=== PATIENT | female | born 1960 | race Caucasian/White ===

== ENCOUNTER 2017-04-20 12:57 | Outpatient (CLI) | payer OTHER | END 2017-04-20 20:30 | disposition home or self-care (01) | LOC: MRD 12:57 | PROVIDERS: ATTEND Internal Medicine Gastroenterology | DX: M25.552 Pain in left hip (principal) | CPT/HCPCS: 73502 ==

== ENCOUNTER 2017-05-17 09:23 | Outpatient (CLI) | payer OTHER ==
[2017-05-17 10:31] LABS: ANION GAP 12.5 (8-16); CARBON DIOXIDE 27.6 mmol/L (21-32); CHOL/HDL RATIO 2.7 (1-4.5); CREATININE 0.6 mg/dL (0.6-1.3); POTASSIUM 4.1 mmol/L (3.5-5.1); THYROID STIMULATING HORMONE 1.69 uIU/mL (0.34-3.74); TOTAL BILIRUBIN 0.4 mg/dL (0.0-1.0)
[2017-05-17 10:52] LABS: HEMATOCRIT 39.6 % (36-48); HEMOGLOBIN 13.3 g/dL (12.0-16.0); LYMPHOCYTES % (AUTO) 33.8 % (20.5-51.1); MEAN CORPUSCULAR HEMOGLOBIN 30 pg (27-31); MEAN CORPUSCULAR HGB CONC 34 g/dL (33-37); MEAN CORPUSCULAR VOLUME 89 fL (80-94); MONOCYTES % (AUTO) 6.9 % (1.7-9.3); NEUTROPHILS % (AUTO) 58.3 % (42.2-75.2); PLATELET COUNT (AUTO) 216 K/uL (140-450); RED BLOOD CELL COUNT(AUTO) 4.47 MIL/uL (4.20-5.40); RED CELL DISTRIBUTION WIDTH 13.1 % (11.6-13.7); WHITE BLOOD COUNT (AUTO) 4.6 K/uL (4.8-10.8)
[2017-05-17 10:53] LABS: BASOPHILS % (AUTO) 0.4 % (0.0-2.0); EOSINOPHILS % (AUTO) 0.6 % (0.0-4.0); LYMPHOCYTES # (AUTO) 1.5 K/uL (2.5-16.5); MONOCYTES # (AUTO) 0.3 K/uL (0.8-1.0); NEUTROPHILS # (AUTO) 2.7 K/uL (1.8-7.7)
[2017-05-18 08:36] LABS: ESTRADIOL SERUM <6.0 pg/mL (.); FOLLICLE STIMULATING HORMONE 75.3 mIU/mL (.); LUTEINIZING HORMONE 43.4 mIU/mL (.)
== END 2017-05-17 20:07 | disposition home or self-care (01) ==
LOC: MLB 09:23
PROVIDERS: ATTEND Family Medicine
DX: R06.02 Shortness of breath (principal); N95.0 Postmenopausal bleeding; M54.9 Dorsalgia, unspecified; M79.606 Pain in leg, unspecified
CPT/HCPCS: 36415; 71020; 80053; 82306; 82670; 83001; 83002; 84443; 85025

== ENCOUNTER 2017-10-18 12:26 | Outpatient (CLI) | payer OTHER | END 2017-10-18 20:45 | disposition home or self-care (01) | LOC: MUS 12:26 | PROVIDERS: ATTEND Family Medicine | DX: R22.31 Localized swelling, mass and lump, right upper limb (principal) | CPT/HCPCS: 76881 ==

== ENCOUNTER → 2017-11-19 | Outpatient (CLI) | payer OTHER | LOC: EEVIPCON 16:00 → MUS 16:00 | PROVIDERS: ATTEND Family Medicine | DX: R10.32 Left lower quadrant pain (principal) | CPT/HCPCS: 76536 ==

== ENCOUNTER 2017-11-30 13:46 | Outpatient (CLI) | payer OTHER | END 2017-11-30 18:09 | disposition home or self-care (01) | LOC: MRD 13:46 | PROVIDERS: ATTEND Family Medicine | DX: M54.5 Low back pain (principal); Z98.890 Other specified postprocedural states | CPT/HCPCS: 72110 ==

== ENCOUNTER 2018-02-12 12:35 | Outpatient (CLI) | payer OTHER | END 2018-02-12 20:43 | disposition home or self-care (01) | LOC: MRD 12:35 | PROVIDERS: ATTEND Family Medicine | DX: M53.3 Sacrococcygeal disorders, not elsewhere classified (principal) | CPT/HCPCS: 72170; 72200 ==

== ENCOUNTER 2018-02-22 13:32 | Outpatient (CLI) | payer OTHER | END 2018-02-22 15:05 | disposition home or self-care (01) | LOC: MRD 13:32 | PROVIDERS: ATTEND Family Medicine | DX: G89.29 Other chronic pain (principal); M25.552 Pain in left hip | CPT/HCPCS: 73700 ==

== ENCOUNTER 2018-04-01 16:01 | Outpatient (CLI) | payer OTHER | END 2018-04-01 23:04 | disposition home or self-care (01) | LOC: MRD 16:01 | PROVIDERS: ATTEND Family Medicine | DX: M51.86 Other intervertebral disc disorders, lumbar region (principal); M25.551 Pain in right hip; R10.2 Pelvic and perineal pain | CPT/HCPCS: 72110; 72200; 73502 ==

== ENCOUNTER 2018-11-18 09:26 | Outpatient (CLI) | payer OTHER ==
[2018-11-18 10:33] LABS: BASOPHILS % (AUTO) 0.3 % (0.0-2.0); EOSINOPHILS % (AUTO) 0.8 % (0.0-4.0); HEMATOCRIT 40.1 % (36-48); HEMOGLOBIN 13.2 g/dL (12.0-16.0); LYMPHOCYTES # (AUTO) 1.4 K/uL (2.5-16.5); MEAN CORPUSCULAR HEMOGLOBIN 29 pg (27-31); MEAN CORPUSCULAR HGB CONC 33 g/dL (33-37); MEAN CORPUSCULAR VOLUME 88.3 fL (80-94); MONOCYTES # (AUTO) 0.3 K/uL (0.8-1.0); MONOCYTES % (AUTO) 5.4 % (1.7-9.3); NEUTROPHILS # (AUTO) 3.6 K/uL (1.8-7.7); NEUTROPHILS % (AUTO) 66.5 % (42.2-75.2); PLATELET COUNT (AUTO) 232 K/uL (140-450); RED BLOOD CELL COUNT(AUTO) 4.54 MIL/uL (4.20-5.40); RED CELL DISTRIBUTION WIDTH 13.3 % (11.6-13.7); WHITE BLOOD COUNT (AUTO) 5.3 K/uL (4.8-10.8)
[2018-11-18 11:07] LABS: ALBUMIN 3.9 g/dL (3.4-5.0); ANION GAP 9.4 (8-16); CARBON DIOXIDE 29.6 mmol/L (21-32); CREATININE 0.7 mg/dL (0.6-1.3); TOTAL BILIRUBIN 0.5 mg/dL (0.0-1.0)
== END 2018-11-18 20:26 | disposition home or self-care (01) ==
LOC: MLB 09:26
PROVIDERS: ATTEND Family Medicine
DX: R53.81 Other malaise (principal)
CPT/HCPCS: 36415; 80053; 85025; 85651